=== PATIENT | female | born 1980 | race Caucasian/White ===

== ENCOUNTER 2020-08-02 10:18 | Outpatient (CLI) | payer OTHER ==
[~2020-08-02 10:18] MED LIST: PRENA1 PEARL S1 EACH PO; PROGESTERONE100 MG PO; [UNRECOGNIZED DRUG - OTHER] PO
== END 2020-08-02 10:26 | disposition home or self-care (01) ==
LOC: MAMO-SONO 10:18
PROVIDERS: ATTEND Obstetrics & Gynecology Maternal & Fetal Medicine
DX: N63.10 Unspecified lump in the right breast, unspecified quadrant (principal); N63.20 Unspecified lump in the left breast, unspecified quadrant; Z12.31 Encounter for screening mammogram for malignant neoplasm of breast; N64.4 Mastodynia; N60.11 Diffuse cystic mastopathy of right breast

== ENCOUNTER → 2024-07-13 | Emergency (ER) | payer OTHER ==
[~2024-07-13] VITALS: Ht 162.6 cm; Wt 61.2 kg
[~2024-07-13] MED LIST changes: +CEFTRIAXONE SODIUM 2,000 MG in 0.9 % SODIUM CHLORIDE 100 ML IV ONE; +CIPROFLOXACIN IN 5 % DEXTROSE 400 MG/200 ML PIGGYBAG IV ONE; +KETOROLAC TROMETHAMINE 30 MG VIAL IM ONE; +NITROFURANTOIN100 MG
[2024-07-13 12:20] LABS: URINE APPEARANCE Clear; URINE BILIRRUBIN Negative (NEGATIVE); URINE BLOOD Trace; URINE COLOR Dark Yellow; URINE GLUCOSE Negative (NEGATIVE); URINE LEUKOCYTE Trace; URINE NITRATE Negative; URINE PROTEIN Negative (NEGATIVE); URINE UROBILINOGEN 0.2 E.U./dl
[2024-07-13 12:21] LABS: URINE BACTERIA 783.3 uL (0.0-1933); URINE RBC 23.8 uL (0.0-20.8); URINE WBC 40.3 uL (0.0-23.2)
[2024-07-13 12:26] LABS: BASO % 0.7 % (0.1-1.2); EOS % 0.7 % (0.7-7.0); HEMATOCRIT 38.4 % (34.1-44.9); HEMOGLOBIN 12.9 g/dL (11.2-15.7); LYMPH # 1.88 (1.18-3.74); LYMPH % 13.2 % (19.3-53.1); MEAN CORPUSCULAR HEMOGLOBIN 30.9 pg (25.6-32.2); MONO # 0.98 (0.24-0.82); MONO % 6.9 % (4.7-12.5); NEUT # 11.09 (1.56-6.13); NEUT % 78.1 % (34.0-71.1); PLATELET COUNT 314 K/uL (163-369); RED BLOOD COUNT 4.17 M/uL (3.93-5.22)
[2024-07-13 12:31] LABS: URINE CAST 0.14 uL (0.0-1.40); URINE KETONE 40 (NEGATIVE)
[2024-07-13 12:57] LABS: CALCIUM 8.4 mg/dL (8.5-10.1); CREATININE SERUM 1.13 mg/dL (0.55-1.02); GFR 53.06; POTASSIUM 3.77 mEq/L (3.5-5.1)
== END | disposition home or self-care (01) ==
LOC: ER 09:29
PROVIDERS: General Practice
DX: N20.1 Calculus of ureter (principal); M54.50 Low back pain, unspecified